=== PATIENT | female | born 1960 | race Asian ===

== ENCOUNTER 2017-08-03 13:40 | Emergency (ER) | payer BC ==
[2017-08-03] MEDS ORDERED: HYDROCODONE/APAP 5/325 MG TAB ONE (17:19)
[2017-08-03] MEDS ORDERED: KETOROLAC 30 MG/ML INJ ONE (17:19)
--- NOTE | 2017-08-03 17:39 | ER ---
Nurse's Notes [facility] Name: Aylson Birmingham Age: 57 yrs Sex: Female : 1960 Arrival Date: 08/03/2017 Time: 13:42 Bed 6 Private MD: Diagnosis: Sprain of ligaments of cervical spine;Allergic contact dermatitis Presentation: 08/03 14:02 Presenting complaint: Patient states: "I have carpal tunnel, and when I sleep it is ss worse. It started a month ago. And two weeks ago, my L shoulder started hurting and now the right side of my neck hurts.". Transition of care: patient was not received from another setting of care. Onset of symptoms is unknown. Care prior to arrival: None. 14:02 Method Of Arrival: Ambulatory ss 14:02 Acuity: BENNIE 4 ss Historical: - Allergies: 14:05 No Known Allergies; ss - Home Meds: 14:05 None [Active]; ss - PMHx: 14:05 None; ss - PSHx: 14:05 Hysterectomy; ss - Immunization history:: Adult Immunizations up to date. - Social history:: Smoking status: Patient/guardian denies using tobacco. Screenin:33 Abuse screen: Denies threats or abuse. Denies injuries from another. Nutritional sv screening: No deficits noted. Tuberculosis screening: No symptoms or risk factors identified. Fall Risk None identified. Assessment: 16:29 General: Appears uncomfortable, slender, well groomed, well developed, Behavior is sv calm, cooperative, appropriate for age, Reports she went to have acupuncture done with no relief. Pain: Complains of pain in right temporal area, right ear, right base of the skull, dorsal aspect of proximal phalanx of left thumb and right posterior aspect of neck and a spot on the right lateral side under the rib cage Pain currently is 8 out of 10 on a pain scale. Quality of pain is described as shooting, Pain began the left hand pain has been a couple of months, the neck pain started about a week ago and the rash showed up this past Friday. Is intermittent, Current management is with "pain pills". Neuro: Level of Consciousness is awake, alert, obeys commands, Oriented to person, place, time, situation, Moves all extremities. Full function Gait is steady, Speech is normal. Cardiovascular: Patient's skin is warm and dry. Respiratory: Respiratory effort is even, unlabored, Respiratory pattern is regular, symmetrical. Derm: Skin is normal, Rash noted that is red, raised, vesicular, on right clavicle and right mid cervical area. Musculoskeletal: Range of motion: intact in all extremities. 17:08 Reassessment: Pt and spouse requesting to speak with the MD again d/t possibly not sv being able to inform the MD of everything that is going on with her since she has a language barrier. Dr Fox informed. 17:15 Reassessment: Dr Fox at the bedside. sv 17:57 Reassessment: Patient appears in no apparent distress at this time. Patient and/or sv family updated on plan of care and expected duration. Pain level reassessed. Patient is alert, oriented x 3, equal unlabored respirations, skin warm/dry/pink. Vital Signs: 14:05 BP 150 / 83; Pulse 75; Resp 18; Temp 98.3; Pulse Ox 99% on R/A; Weight 52.62 kg; Height ss 5 ft. 3 in. (160.02 cm); Pain 7/10; 17:57 BP 151 / 80; Pulse 57; Resp 16; Pulse Ox 100% ; sv 14:05 Body Mass Index 20.55 (52.62 kg, 160.02 cm) ss ED Course: 13:42 Patient arrived in ED. as 14:04 Triage completed. ss 14:05 Arm band placed on right wrist. Patient placed. ss 16:13 Ezio Fox MD is Attending Physician. gs 16:20 Agnes Marshall, ZAKI is Primary Nurse. sv 16:33 Awaiting ED provider evaluation. sv 16:33 Patient has correct armband on for positive identification. Bed in low position. Call sv light in reach. Adult w/ patient. Door closed. Head of bed elevated. 16:38 ED physician to see patient. sv 16:38 Warm blanket given. sv 17:38 Kwasi Paul MD is Referral Physician. gs 17:57 No provider procedures requiring assistance completed. Patient did not have IV access sv during this emergency room visit. Administered Medications: 17:07 Drug: TORadol 30 mg Route: IM; Site: right gluteus; sv 17:33 Follow up: Response: No adverse reaction sv 17:07 Drug: [place] 5 mg-325 mg 1 tabs Route: PO; sv 17:33 Follow up: Response: No adverse reaction sv Outcome: 17:39 Discharge ordered by MD. gs 17:57 Discharged to home ambulatory, with family. sv 17:57 Condition: stable 17:57 Discharge instructions given to patient, family, Instructed on discharge instructions, follow up and referral plans. no drinking with medication, no driving heavy equipment, medication usage, Demonstrated understanding of instructions, follow-up care, medications, Prescriptions given X 3. 17:58 Patient left the ED. sv Signatures: Agnes Marshall RN Griselda Garcia Shelby, RN RN Ezio Fox MD MD gs Corrections: (The following items were deleted from the chart) 17:09 16:29 General: Appears uncomfortable, slender, well groomed, well developed, Behavior sv is calm, cooperative, appropriate for age, sv 17:09 17:08 Reassessment: Pt and spouse requesting to speak with the MD again d/t possibly sv not being able to inform the MD of everything that is going on with her since she has a language barrier. sv
--- NOTE | 2017-08-03 17:39 | EDPHYS ---
Physician Documentation [facility] Name: Alyson Birmingham Age: 57 yrs Sex: Female : 1960 Arrival Date: 08/03/2017 Time: 13:42 Bed 6 Private MD: ED Physician Ezio Fox HPI: 08/03 17:31 This 57 yrs old Female presents to ER via Ambulatory with complaints of Neck gs Pain, >24Hrs Old. 17:31 The patient or guardian complains of pain, that is acute. The symptoms are located on gs the back of head, right mid cervical area and right trapezius. Onset: The symptoms/episode began/occurred 4 day(s) ago. Context: The problem was sustained at home, The neck injury/problem resulted from from unknown cause. Associated signs and symptoms: Pertinent negatives: headache, bladder incontinence, bowel incontinence, nausea, tingling. The pain does not radiate. Modifying factors: The symptoms are alleviated by ice packs, the symptoms are aggravated by movement. Severity of symptoms: At their worst the symptoms were moderate, in the emergency department the symptoms are unchanged. The patient has not experienced similar symptoms in the past. Historical: - Allergies: 14:05 No Known Allergies; ss - Home Meds: 14:05 None [Active]; ss - PMHx: 14:05 None; ss - PSHx: 14:05 Hysterectomy; ss - Immunization history:: Adult Immunizations up to date. - Social history:: Smoking status: Patient/guardian denies using tobacco. ROS: 17:31 Skin: Positive for rash, over r neck may have started after placing pain pad over area. gs 17:31 All other systems are negative. Exam: 17:31 Head/Face: Normocephalic, atraumatic. Eyes: Pupils equal round and reactive to light, gs extra-ocular motions intact. Lids and lashes normal. Conjunctiva and sclera are non-icteric and not injected. Cornea within normal limits. Periorbital areas with no swelling, redness, or edema. ENT: Nares patent. No nasal discharge, no septal abnormalities noted. Tympanic membranes are normal and external auditory canals are clear. Oropharynx with no redness, swelling, or masses, exudates, or evidence of obstruction, uvula midline. Mucous membranes moist. Chest/axilla: Normal chest wall appearance and motion. Nontender with no deformity. No lesions are appreciated. Cardiovascular: Regular rate and rhythm with a normal S1 and S2. No gallops, murmurs, or rubs. Normal PMI, no JVD. No pulse deficits. Respiratory: Lungs have equal breath sounds bilaterally, clear to auscultation and percussion. No rales, rhonchi or wheezes noted. No increased work of breathing, no retractions or nasal flaring. Abdomen/GI: Soft, non-tender, with normal bowel sounds. No distension or tympany. No guarding or rebound. No evidence of tenderness throughout. Back: No spinal tenderness. No costovertebral tenderness. Full range of motion. MS/ Extremity: Pulses equal, no cyanosis. Neurovascular intact. Full, normal range of motion. Neuro: Awake and alert, GCS 15, oriented to person, place, time, and situation. Cranial nerves II-XII grossly intact. Motor strength 5/5 in all extremities. Sensory grossly intact. Cerebellar exam normal. Normal gait. 17:31 Constitutional: The patient appears in no acute distress, alert, awake. 17:31 Neck: External neck: tenderness, that is moderate, of the right mid cervical area and right trapezius. 17:31 Skin: rash a mild rash is noted, rash can be described as macular, papular, contact dermatitis, on the right trapezius and back of neck. Vital Signs: 14:05 BP 150 / 83; Pulse 75; Resp 18; Temp 98.3; Pulse Ox 99% on R/A; Weight 52.62 kg; Height ss 5 ft. 3 in. (160.02 cm); Pain 7/10; 17:57 BP 151 / 80; Pulse 57; Resp 16; Pulse Ox 100% ; sv 14:05 Body Mass Index 20.55 (52.62 kg, 160.02 cm) ss MDM: 16:42 Patient medically screened. gs 17:31 Differential diagnosis: Cervical Discogenic Pain cervical strain, Degenerative Disc gs Disease Herpes Zoster contact dermatitis. Data reviewed: vital signs, nurses notes. ED course: rash doesn't follow dermatome lesion is singular and looks more like pain pad distribution. 17:41 Counseling: I had a detailed discussion with the patient and/or guardian regarding: the gs presence of at least one elevated blood pressure reading (>120/80) during this emergency department visit. Special discussion: I have referred the patient to see his PCP for further evaluation of high blood pressure. Administered Medications: 17:07 Drug: TORadol 30 mg Route: IM; Site: right gluteus; sv 17:33 Follow up: Response: No adverse reaction sv 17:07 Drug: [place] 5 mg-325 mg 1 tabs Route: PO; sv 17:33 Follow up: Response: No adverse reaction sv Disposition: 08/03/17 17:39 Discharged to Home. Impression: Sprain of ligaments of cervical spine, Allergic contact dermatitis. - Condition is Stable. - Discharge Instructions: Cervical Sprain, Contact Dermatitis, [id number], Managing Your High Blood Pressure. - Prescriptions for Prednisone 20 mg Oral Tablet - take 1 tablet by ORAL route once daily for 5 days; 5 tablet. Tylenol- Codeine #4 300-60 mg Oral Tablet - take 1 tablet by ORAL route every 6 hours As needed; 10 tablet. Triamcinolone Acetonide 0.5 % Topical Cream - apply 1 application by TOPICAL route 2 times per day As needed; 1 tube. - Medication Reconciliation Form, Thank You Letter, Antibiotic Education, Prescription Opioid Use form. - Follow up: Kwasi Paul MD; When: 2 - 3 days; Reason: Re-evaluation by your physician. Signatures: Agnes Marshall, RN Kathrin Ramirez RN RN Ezio Fox MD MD
== END 2017-08-03 17:58 | disposition home or self-care (01) ==
LOC: ER 13:40
DX: S13.4XXA Sprain of ligaments of cervical spine, initial encounter (principal); X58.XXXA Exposure to other specified factors, initial encounter; Y92.009 Unspecified place in unspecified non-institutional (private) residence as the place of occurrence of the external cause; L23.9 Allergic contact dermatitis, unspecified cause
CPT/HCPCS: 96372; 99283